=== PATIENT | male | born 1985 | race Caucasian/White ===

== ENCOUNTER 2018-12-01 04:34 | Inpatient (IN) | payer SELFPAY ==
[2018-12-01 05:01] LABS: Absolute Lymphocytes (CBC) 1.6 K/uL (0.7-4.9); Basophils % 0.6 % (0-1.3); Hematocrit 47.3 % (39.6-49.0); Lymphocytes % 28.1 % (15.3-44.8); MPV 8.4 fL (7.6-11.3); RBC Red Blood Cell Count 4.95 M/uL (4.33-5.43)
[2018-12-01] MEDS ORDERED: NA CHLORIDE 0.9% 1,000 ML ONE ×2 (05:02→05:57)
[2018-12-01] MEDS ORDERED: THIAMINE 200 MG/2 ML INJ ONE (05:02)
[2018-12-01] MEDS ORDERED: NA CHLORIDE 0.9% 50 ML IV ONE (05:02)
[2018-12-01 05:12] LABS: Protime INR 0.99
[2018-12-01 05:15] LABS: Urine Blood 1+ (NEG); Urine Glucose NEGATIVE (NEG); Urine Protein 3+ (NEG); Urine Specific Gravity 1.025 (1.005-1.030)
[2018-12-01 05:28] LABS: AST/SGOT 216 U/L (15-37); Alkaline Phosphatase 70 U/L (45-117); BUN Blood Urea Nitrogen 12 mg/dL (7-18); Bicarbonate 26 mmol/L (21-32); Bilirubin Direct 0.1 mg/dL (0-0.2); Bilirubin Total 0.3 mg/dL (0.2-1.0); Glucose Level 128 mg/dL (74-106); Magnesium 2.5 mg/dL (1.8-2.4); NT PRO-BNP 12 pg/mL (<125); Protein, Total 8.2 g/dL (6.4-8.2); Sodium Level 143 mmol/L (136-145); Troponin (Emerg Dept Use Only) < 0.02 ng/mL (0.0-0.045)
[2018-12-01 05:28] LABS: Barbiturates NEGATIVE (NEGATIVE); Benzodiazepines NEGATIVE (NEGATIVE); Cocaine NEGATIVE (NEGATIVE); METHAMPHETAM POSITIVE (NEGATIVE); Methadone NEGATIVE (NEGATIVE); Opiates POSITIVE (NEGATIVE); Phencyclidine NEGATIVE (NEGATIVE); THC Cannibis NEGATIVE (NEGATIVE)
[2018-12-01 05:31] LABS: ALT/SGPT 364 U/L (12-78)
--- NOTE | 2018-12-01 05:43 | EDPHYS ---
Physician Documentation [facility] Name: Rosalino Rob Age: 33 yrs Sex: Male : 1985 Arrival Date: 12/01/2018 Time: 04:35 Bed 3 Private MD: ED Physician Ray Loyd HPI: 12/01 04:40 This 33 yrs old Male presents to ER via Unassigned with complaints of ams. imtiaz 04:40 The patient presents with confusion, decreased mental status, decreased responsiveness, imtiaz trouble concentrating. Onset: The symptoms/episode began/occurred at an unknown time. Possible causes: drug use, alcohol, head injury, low blood sugar, seizure, unknown. Associated signs and symptoms: The patient has no apparent associated signs or symptoms. Current symptoms: In the emergency department the patient's symptoms have improved, moderately, is more alert. Patient's baseline: Neuro: alert and fully oriented. It is unknown whether or not the patient has had similar symptoms in the past. Historical: - Allergies: 04:45 Unable to obtain; fc - Home Meds: 04:45 Unable to obtain [Active]; fc - PMHx: 04:45 Unable to obtain; fc - PSHx: 04:45 Unable to obtain; fc - Immunization history:: Last tetanus immunization: unknown. - Social history:: Smoking status: unknown. - Family history:: not pertinent. - Ebola Screening: : Patient negative for fever greater than or equal to 101.5 degrees Fahrenheit, and additional compatible Ebola Virus Disease symptoms Patient denies exposure to infectious person Patient denies travel to an Ebola-affected area in the 21 days before illness onset. - Hospitalizations: : No recent hospitalization is reported. ROS: 04:40 Constitutional: Negative for fever, chills, and weight loss, Eyes: Negative for injury, imtiaz pain, redness, and discharge, ENT: Negative for injury, pain, and discharge, Neck: Negative for injury, pain, and swelling, Cardiovascular: Negative for chest pain, palpitations, and edema, Respiratory: Negative for shortness of breath, cough, wheezing, and pleuritic chest pain, Abdomen/GI: Negative for abdominal pain, nausea, vomiting, diarrhea, and constipation, Back: Negative for injury and pain, : Negative for injury, bleeding, discharge, and swelling, MS/Extremity: Negative for injury and deformity, Skin: Negative for injury, rash, and discoloration, Psych: Negative for depression, anxiety, suicide ideation, homicidal ideation, and hallucinations, Allergy/Immunology: Negative for hives, rash, and allergies, Endocrine: Negative for neck swelling, polydipsia, polyuria, polyphagia, and marked weight changes. 04:40 Neuro: Positive for altered mental status, weakness. imtiaz Exam: 04:40 Constitutional: This is a well developed, well nourished patient who is awake, alert, imtiaz and in no acute distress. Head/Face: Normocephalic, atraumatic. Eyes: Pupils equal round and reactive to light, extra-ocular motions intact. Lids and lashes normal. Conjunctiva and sclera are non-icteric and not injected. Cornea within normal limits. Periorbital areas with no swelling, redness, or edema. ENT: Nares patent. No nasal discharge, no septal abnormalities noted. Tympanic membranes are normal and external auditory canals are clear. Oropharynx with no redness, swelling, or masses, exudates, or evidence of obstruction, uvula midline. Mucous membranes moist. Neck: Trachea midline, no thyromegaly or masses palpated, and no cervical lymphadenopathy. Supple, full range of motion without nuchal rigidity, or vertebral point tenderness. No Meningismus. Chest/axilla: Normal chest wall appearance and motion. Nontender with no deformity. No lesions are appreciated. Cardiovascular: Regular rate and rhythm with a normal S1 and S2. No gallops, murmurs, or rubs. Normal PMI, no JVD. No pulse deficits. Respiratory: Lungs have equal breath sounds bilaterally, clear to auscultation and percussion. No rales, rhonchi or wheezes noted. No increased work of breathing, no retractions or nasal flaring. Abdomen/GI: Soft, non-tender, with normal bowel sounds. No distension or tympany. No guarding or rebound. No evidence of tenderness throughout. Back: No spinal tenderness. No costovertebral tenderness. Full range of motion. Male : Normal genitalia with no discharge or lesions. Skin: Warm, dry with normal turgor. Normal color with no rashes, no lesions, and no evidence of cellulitis. MS/ Extremity: Pulses equal, no cyanosis. Neurovascular intact. Full, normal range of motion. Neuro: Awake and alert, GCS 15, oriented to person, place, time, and situation. Cranial nerves II-XII grossly intact. Motor strength 5/5 in all extremities. Sensory grossly intact. Cerebellar exam normal. Normal gait. Psych: Awake, alert, with orientation to person, place and time. Behavior, mood, and affect are within normal limits. Vital Signs: 04:33 BP 130 / 53; Pulse 131; Resp 16; Temp 98.3(A); Pulse Ox 99% on 100% Non-rebreather fc mask; Weight 99.79 kg (R); Height 5 ft. 9 in. (175.26 cm) (R); Pain 0/10; 05:15 BP 121 / 51; Pulse 121; Resp 14; Pulse Ox 91% on 4 lpm NC; rr5 05:25 BP 122 / 46; Pulse 122; Resp 12; Pulse Ox 100% on 15% Non-rebreather mask; rr5 05:30 BP 122 / 48; Pulse 118; Resp 11; Pulse Ox 100% on 15% Non-rebreather mask; rr5 05:50 BP 124 / 58; Pulse 113; Resp 17; Pulse Ox 100% on 15% Non-rebreather mask; rr5 06:05 BP 121 / 60; Pulse 118; Resp 15; Pulse Ox 99% on 15% Non-rebreather mask; rr5 06:11 BP 113 / 51; Pulse 129; Resp 18; Pulse Ox 100% on 15% Non-rebreather mask; rr5 06:24 BP 128 / 64; Pulse 120; Resp 15; Pulse Ox 95% on 50% BiPAP; rr5 07:00 BP 110 / 49; Pulse 115; Resp 15; Temp 97; Pulse Ox 93% on 50% BiPAP; rr5 04:33 Body Mass Index 32.49 (99.79 kg, 175.26 cm) fc 05:15 changed to non rebreather mask \T\ 15 liters rr5 Brenda Coma Score: 04:33 Eye Response: to voice(3). Verbal Response: confused(4). Motor Response: localizes rr5 pain(5). Total: 12. 05:00 Eye Response: to voice(3). Verbal Response: oriented(5). Motor Response: obeys rr5 commands(6). Total: 14. 05:30 Eye Response: none(1). Verbal Response: incomprehensible(2). Motor Response: none(1). rr5 Total: 4. 05:38 Eye Response: to pain(2). Verbal Response: incomprehensible(2). Motor Response: rr5 withdraws from pain(4). Total: 8. 06:05 Eye Response: to voice(3). Verbal Response: confused(4). Motor Response: obeys rr5 commands(6). Total: 13. 06:11 Eye Response: to voice(3). Verbal Response: confused(4). Motor Response: obeys rr5 commands(6). Total: 13. 06:24 Eye Response: to voice(3). Verbal Response: confused(4). Motor Response: obeys rr5 commands(6). Total: 13. 07:00 Eye Response: to voice(3). Verbal Response: confused(4). Motor Response: obeys rr5 commands(6). Total: 13. 05:30 seen and reassess by ED provider. rr5 05:38 stat medication given,reassess by ED provider at bedside rr5 MDM: 04:42 Data reviewed: vital signs, nurses notes, lab test result(s), EKG, radiologic studies, imtiaz CT scan, plain films. 04:43 Patient medically screened. 12/01 04:38 Order name: Basic Metabolic Panel; Complete Time: 05:38 12/01 04:38 Order name: CBC with Diff; Complete Time: 05:38 12/01 04:38 Order name: LFT's; Complete Time: 05:38 12/01 04:38 Order name: Magnesium; Complete Time: 05:38 12/01 04:38 Order name: NT PRO-BNP; Complete Time: 05:38 12/01 04:38 Order name: PT-INR; Complete Time: 05:38 12/01 04:38 Order name: Troponin (emerg Dept Use Only); Complete Time: 05:38 12/01 04:38 Order name: Acetaminophen; Complete Time: 05:38 12/01 04:38 Order name: ETOH Level; Complete Time: 05:38 12/01 04:38 Order name: Ptt, Activated; Complete Time: 05:38 12/01 04:38 Order name: Salicylate; Complete Time: 05:38 [facility] 12/01 04:38 Order name: Urine Drug Screen; Complete Time: 05:38 [facility] 12/01 05:00 Order name: Urine Dipstick--Ancillary (enter results); Complete Time: 05:38 ar5 12/01 05:47 Order name: ABG [facility] 12/01 04:38 Order name: XRAY Chest (1 view) [facility] 12/01 04:38 Order name: EKG; Complete Time: 04:40 [facility] 12/01 04:38 Order name: Cardiac monitoring; Complete Time: 05:04 [facility] 12/01 04:38 Order name: EKG - Nurse/Tech; Complete Time: 05:04 [facility] 12/01 04:38 Order name: IV Saline Lock; Complete Time: 05:04 [facility] 12/01 04:38 Order name: Labs collected and sent; Complete Time: 05:08 [facility] 12/01 04:38 Order name: O2 Per Protocol; Complete Time: 05:04 [facility] 12/01 04:38 Order name: O2 Sat Monitoring; Complete Time: 05:04 [facility] 12/01 04:38 Order name: Urine Dipstick-Ancillary (obtain specimen); Complete Time: 05:04 [facility] 12/01 04:38 Order name: CT Head Brain wo Cont [facility] 12/01 04:38 Order name: Seizure Precautions; Complete Time: 05:08 [facility] 12/01 06:13 Order name: BIPAP: 14, 50%, 12,6 [facility] 12/01 04:39 Order name: Blood Glucose Level; Complete Time: 05:08 [facility] Administered Medications: 04:44 Drug: NS 0.9% 1000 ml Route: IV; Rate: 1 bolus; Site: right antecubital; rr5 05:45 Follow up: Response: No adverse reaction; IV Status: Completed infusion; IV Intake: rr5 1000ml 04:45 Drug: Thiamine 100 mg Route: IV; Rate: bolus; Site: right antecubital; rr5 05:58 Follow up: Response: No adverse reaction; IV Status: Completed infusion; IV Intake: [id number] 05:35 Drug: NARcan 1 mg Route: IVP; Site: right antecubital; rr5 05:42 Drug: NS 0.9% 1000 ml Route: IV; Rate: 1 bolus; Site: right antecubital; rr5 06:14 Follow up: Response: No adverse reaction; IV Status: Completed infusion; IV Intake: rr5 1000ml Point of Care Testing: Blood Glucose: 05:03 Blood Glucose: 117 mg/dL; rr5 Ranges: Critical Glucose Levels:Adult <50 mg/dl or >400 mg/dl <40 mg/dl or >180 mg/dl Disposition: 12/01/18 05:41 Hospitalization ordered by Guillaume Mccrary for Inpatient Admission. Preliminary diagnosis are Altered mental status, unspecified, Abuse of non-psychoactive substances. - Bed requested for Intensive Care Unit. - Status is Inpatient Admission. sv - Condition is Fair. - Problem is new. - Symptoms are unchanged. UTI on Admission? No Signatures: Dispatcher [employer] EDJennifer Savage, RN RN Ray Maldonado MD MD cha Chretien, Felicia RN RN Melia Maddox RN RN Zachery Campos RN RN ja1 Antoine Razo RN RN rr5 Corrections: (The following items were deleted from the chart) 04:42 04:40 Neuro: Positive for [facility] 07:04 05:41 Hospitalization Ordered by Guillaume Mccrary DO for Inpatient Admission. Preliminary ja1 diagnosis is Altered mental status, unspecified; Abuse of non-psychoactive substances. Bed requested for Intensive Care Unit. Status is Inpatient Admission. Condition is Fair. Problem is new. Symptoms are unchanged. UTI on Admission? No. [facility] 07:41 07:04 12/01/2018 05:41 Hospitalization Ordered by Guillaume Mccrary DO for Inpatient sv Admission. Preliminary diagnosis is Altered mental status, unspecified; Abuse of non-psychoactive substances. Bed requested for Intensive Care Unit. Status is Inpatient Admission. Condition is Fair. Problem is new. Symptoms are unchanged. UTI on Admission? No. ja1
--- NOTE | 2018-12-01 05:43 | ER ---
Nurse's Notes [facility] Name: Rosalino Rob Age: 33 yrs Sex: Male : 1985 Arrival Date: 12/01/2018 Time: 04:35 Bed 3 Private MD: Diagnosis: Altered mental status, unspecified;Abuse of non-psychoactive substances Presentation: 12/01 04:33 Presenting complaint: EMS states: that they were toned for unresponsive person on sofa. fc Upon their arrival they found pt lying on sofa breathing approx 6 times a min. Pt given narcan and resp rate increased. Transition of care: patient was not received from another setting of care. Onset of symptoms was December 01, 2018. Risk Assessment: Do you want to hurt yourself or someone else? Patient reports no desire to harm self or others. Initial Sepsis Screen: Does the patient meet any 2 criteria? HR > 90 bpm. Yes Does the patient have a suspected source of infection? No. Patient's initial sepsis screen is negative. Care prior to arrival: nasal trumpet, Medication(s) given: Narcan 1.5 mg IV initiated. 18 GA, in the left antecubital area. 04:33 Method Of Arrival: EMS: [facility] 04:33 Acuity: MIMA 2 fc Historical: - Allergies: 04:45 Unable to obtain; fc - Home Meds: 04:45 Unable to obtain [Active]; fc - PMHx: 04:45 Unable to obtain; fc - PSHx: 04:45 Unable to obtain; fc - Immunization history:: Last tetanus immunization: unknown. - Social history:: Smoking status: unknown. - Family history:: not pertinent. - Ebola Screening: : Patient negative for fever greater than or equal to 101.5 degrees Fahrenheit, and additional compatible Ebola Virus Disease symptoms Patient denies exposure to infectious person Patient denies travel to an Ebola-affected area in the 21 days before illness onset. - Hospitalizations: : No recent hospitalization is reported. Screenin:33 Abuse screen: Denies threats or abuse. Nutritional screening: No deficits noted. fc Tuberculosis screening: No symptoms or risk factors identified. Fall Risk None identified. Assessment: 04:30 General: Appears in no apparent distress. unkempt, Behavior is drowsy, snoring. came rr5 via EMS with chief complaint of unresponsiveness. medication given by EMS staff. patient came to ED snoring response to voice. drowsy not aggressive.. 04:30 Pain: Unable to use pain scale. Patient is disoriented. Neuro: Level of Consciousness rr5 is confused, Oriented to none. Cardiovascular: Capillary refill < 3 seconds Patient's skin is warm and dry. Respiratory: Airway is patent Respiratory effort is even, unlabored, Respiratory pattern is regular, symmetrical, snoring noted, maintaining O2 saturation 98-100% via room air.with nasal trumpet right nares. GI: No signs and/or symptoms were reported involving the gastrointestinal system. : No signs and/or symptoms were reported regarding the genitourinary system. EENT: No signs and/or symptoms were reported regarding the EENT system. Derm: Skin is intact, Skin temperature is warm. Musculoskeletal: Capillary refill < 3 seconds. 05:00 Reassessment: Patient appears in no apparent distress at this time. sent to CT scan via rr5 stretcher accompanied by ANANT hicks. 05:30 Reassessment: diaphoretic, RR decreased to 11 cpm, GCS 4/15, informed ED provider with rr5 order made and carried out. 05:50 Reassessment: RR increased to 17 cpm, reassess by ED provider patient respond to pain. rr5 dr. loyd spoke to hospitalist for admission.Dr. green at bedside examining the patient. 06:05 Reassessment: Patient appears in no apparent distress at this time. patient respond to rr5 voice when asked how is he? " I'm fine I'm fine" as verbalized by the patient. maintaining oxygen saturation at 100% at 15 liters on non re breather mask. 06:13 Reassessment: ABG result review, ED provider with order of BIPAP made and carried out. rr5 06:15 Reassessment: nasal trumpet removed by dr. loyd. rr5 06:30 Reassessment: Patient appears in no apparent distress at this time. still snoring rr5 noted,patient respond to voice and follows command. Vital Signs: 04:33 BP 130 / 53; Pulse 131; Resp 16; Temp 98.3(A); Pulse Ox 99% on 100% Non-rebreather fc mask; Weight 99.79 kg (R); Height 5 ft. 9 in. (175.26 cm) (R); Pain 0/10; 05:15 BP 121 / 51; Pulse 121; Resp 14; Pulse Ox 91% on 4 lpm NC; rr5 05:25 BP 122 / 46; Pulse 122; Resp 12; Pulse Ox 100% on 15% Non-rebreather mask; rr5 05:30 BP 122 / 48; Pulse 118; Resp 11; Pulse Ox 100% on 15% Non-rebreather mask; rr5 05:50 BP 124 / 58; Pulse 113; Resp 17; Pulse Ox 100% on 15% Non-rebreather mask; rr5 06:05 BP 121 / 60; Pulse 118; Resp 15; Pulse Ox 99% on 15% Non-rebreather mask; rr5 06:11 BP 113 / 51; Pulse 129; Resp 18; Pulse Ox 100% on 15% Non-rebreather mask; rr5 06:24 BP 128 / 64; Pulse 120; Resp 15; Pulse Ox 95% on 50% BiPAP; rr5 07:00 BP 110 / 49; Pulse 115; Resp 15; Temp 97; Pulse Ox 93% on 50% BiPAP; rr5 04:33 Body Mass Index 32.49 (99.79 kg, 175.26 cm) fc 05:15 changed to non rebreather mask \\T\\ 15 liters rr5 [place] Coma Score: 04:33 Eye Response: to voice(3). Verbal Response: confused(4). Motor Response: localizes rr5 pain(5). Total: 12. 05:00 Eye Response: to voice(3). Verbal Response: oriented(5). Motor Response: obeys rr5 commands(6). Total: 14. 05:30 Eye Response: none(1). Verbal Response: incomprehensible(2). Motor Response: none(1). rr5 Total: 4. 05:38 Eye Response: to pain(2). Verbal Response: incomprehensible(2). Motor Response: rr5 withdraws from pain(4). Total: 8. 06:05 Eye Response: to voice(3). Verbal Response: confused(4). Motor Response: obeys rr5 commands(6). Total: 13. 06:11 Eye Response: to voice(3). Verbal Response: confused(4). Motor Response: obeys rr5 commands(6). Total: 13. 06:24 Eye Response: to voice(3). Verbal Response: confused(4). Motor Response: obeys rr5 commands(6). Total: 13. 07:00 Eye Response: to voice(3). Verbal Response: confused(4). Motor Response: obeys rr5 commands(6). Total: 13. 05:30 seen and reassess by ED provider. rr5 05:38 stat medication given,reassess by ED provider at bedside rr5 ED Course: 04:30 Placed nasal trumpet 18 Fr via right nare. came in nasal trumpet by EMS. cc3 04:33 Arm band placed on Patient placed in an exam room, on a stretcher. fc 04:33 Patient has correct armband on for positive identification. Placed in gown. Bed in low fc position. Call light in reach. Side rails up X2. monitoring coordinator on. Pulse ox on. NIBP on. 04:33 No provider procedures requiring assistance completed. fc 04:35 Patient arrived in ED. imtiaz 04:36 Ray Loyd MD is Attending Physician. imtiaz 04:40 Inserted saline lock: 18 gauge in right antecubital area, using aseptic technique. rr5 ,using aseptic technique. inserted by melia [place] Blood collected. 04:41 Antoine Razo, ANANT is Primary Nurse. rr5 04:43 Triage completed. fc 04:45 Urine collected: straight cath specimen, clear, inserted by pathology technologistpauline vaughn. rr5 04:46 Warm blanket given. Head of bed elevated. rr5 04:49 Seizure precautions initiated. rr5 04:50 EKG done, by ED staff, reviewed by Ray Loyd MD. rr5 04:53 X-ray completed. Portable x-ray completed in exam room. Patient tolerated procedure kw well. 04:56 XRAY Chest (1 view) In Process Unspecified. EDMS 05:09 CT completed. Patient tolerated procedure well. Patient moved to CT via stretcher. Patient moved back from CT. 05:15 Oxygen administration via non-rebreather mask \\T\\ 15L/min Response to oxygen therapy: rr5 symptoms improved. 05:18 CT Head Brain wo Cont In Process Unspecified. EDMS 05:31 Notified ED physician of a critical lab result(s). ALT 364. Dr Loyd notified. bb 05:39 Guillaume Green DO is Hospitalizing Provider. imtiaz 06:05 ABG drawn. by RT staff, on oxygen. rr5 07:11 Patient admitted, IV remains in place. intact, No redness/swelling at site. rr5 Administered Medications: 04:44 Drug: NS 0.9% 1000 ml Route: IV; Rate: 1 bolus; Site: right antecubital; rr5 05:45 Follow up: Response: No adverse reaction; IV Status: Completed infusion; IV Intake: rr5 1000ml 04:45 Drug: Thiamine 100 mg Route: IV; Rate: bolus; Site: right antecubital; rr5 05:58 Follow up: Response: No adverse reaction; IV Status: Completed infusion; IV Intake: [id number] 05:35 Drug: NARcan 1 mg Route: IVP; Site: right antecubital; rr5 05:42 Drug: NS 0.9% 1000 ml Route: IV; Rate: 1 bolus; Site: right antecubital; rr5 06:14 Follow up: Response: No adverse reaction; IV Status: Completed infusion; IV Intake: rr5 1000ml Point of Care Testing: Blood Glucose: 05:03 Blood Glucose: 117 mg/dL; rr5 Ranges: Intake: 05:45 IV: 1000ml; Total: 1000ml. rr5 05:58 IV: 50ml; Total: 1050ml. rr5 06:14 IV: 1000ml; Total: 2050ml. rr5 Outcome: 05:41 Decision to Hospitalize by Provider. imtiaz 07:10 Admitted to ICU accompanied by nurse, via stretcher, room ICU 5, with oxygen, on rr5 monitor, with chart, Report called to em brito 07:10 Condition: stable 07:10 Instructed on the need for admit. 07:41 Patient left the ED. sv Signatures: Dispatcher [employer] EDMS Jennifer Beauchamp, RN Ray Richardson MD MD cha Hagler, Ervin eh Chretien, Felicia, RN Melia Poe RN RN bb Whitley, Kimberlee kw Cordel, Charlene cc3 Antoine Razo RN RN rr5 Corrections: (The following items were deleted from the chart) 04:59 04:30 Placed nasal trumpet 18 Fr via right nare. came in nasal trumpet by EMS rr5 cc3 05:31 04:33 GCS: 13, rr5 rr5
[2018-12-01] MEDS ORDERED: NALOXONE HCL 2 MG/2 ML VIAL ONE (05:51)
[2018-12-01 06:08] LABS: Arterial Blood Carboxyhemoglob 1.5 % (0-1.5); Blood Gas Oxyhemoglobin 96.6 % (94-97); Blood O2 Saturation 98.9 % (92-98.5)
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
[2018-12-01] MEDS ORDERED: IPRATROPIUM BROM 0.5MG/2.5ML NEB PRN (07:42)
[2018-12-01] MEDS ORDERED: ACETAMINOPHEN 650MG/RECT SUPP PR PRN (07:42)
[2018-12-01] MEDS ORDERED: ALBUTEROL 2.5 MG/3 ML NEB SOL NEB PRN (07:42)
[2018-12-01] MEDS ORDERED: ONDANSETRON 4 MG/2 ML VIAL IV PRN (07:42)
[2018-12-01] MEDS ORDERED: ACETAMINOPHEN 500 MG TAB PO PRN (07:42)
[2018-12-01] MEDS: NA CHLORIDE 0.9% 1,000 ML IV SCH ×2 (07:42→20:04)
--- NOTE | 2018-12-01 08:40 | RAD REPORT ---
EXAM DESCRIPTION: Colin Single View12/01/2018 4:57 am CLINICAL HISTORY: Cough COMPARISON: 2008 FINDINGS: Situs inversus. Stomach within the right abdomen. Prominence of the left paratracheal region/hilum Heart size normal IMPRESSION: Prominence of the left paratracheal region/left hilum. PA and lateral chest series is r ecommended for further evaluation
[2018-12-01] MEDS: FOLIC ACID 1 MG, MULTIVITAMINS INJ 10 ML, THIAMINE HCL 100 MG in NA CHLORIDE 0.9% 1,000 ML IV SCH (09:15)
[2018-12-01] MEDS: ENOXAPARIN 40 MG/0.4 ML SQ SCH (09:15)
--- NOTE | 2018-12-01 09:16 | RAD REPORT ---
EXAM DESCRIPTION: CT - Head Brain Wo Cont - 12/01/2018 5:56 am CLINICAL HISTORY: DIZZINESS TECHNIQUE: Multiple axial CT images of the brain were performed followed by sagittal and coronal rec onstructed images. The CT study is performed according to ALARA (as low as reasonably achievable) or ALARA/IMAGE GENTLY, with automatic adjustment of mA and/or kV according to patient size. Performed on: 12/01/2018 at 5:01 AM COMPARISON: None. FINDINGS: There is no evidence of mass, acute mass effect or midline shift. There are no acute extra -axial fluid collections. There is no evidence of acute intracranial hemorrhage. The cerebral sulci and ventricles are normal in size and configuration. There are no focal abnormal areas of increased or decreased attenuation. There is no significant mucosal thickening of the paranasal sinuses. A nasal cannula is present. The mastoid air cells are clear. The orbital contents are grossly unremarkable. No acute osseous abnormalities are identified. No focal soft tissue abnormalities are identified. IMPRESSION: 1. There is no evidence of acute intracranial pathology. Electronically signed by: Dayami Garay DO 12/01/2018 5:29 AM CDT Due to temporary technical issues with the PACS/Fluency reporting system, reports are being signed by the in house radiologist as a courtesy to ensure prompt reporting. The interpreting radiologist is f robelly responsible for the content of the report.
[2018-12-01] MEDS ORDERED: LORazepam 2 MG/ML VIAL IV PRN (11:24)
--- NOTE | 2018-12-01 13:34 | EKG ---
Test Date: 2018-12-01 Test Time: 04:57:21 Multimedia Services Manager: MICHELLE MEASUREMENT RESULTS: Intervals: Rate: 119 SC: 174 QRSD: 86 QT: 296 QTc: 416 [place]: P: SC: 174 QRS: 119 T: 166 INTERPRETIVE STATEMENTS: Sinus tachycardia Inferior infarct, age undetermined Anterolateral infarct, age undetermined Abnormal ECG Compared to ECG 11/22/2015 07:03:26 Sinus rhythm no longer present Myocardial infarct finding still present Electronically Signed On 12-01-18 13:33:29 CDT by Yvon Lockhart
--- NOTE | 2018-12-01 15:12 | PN ---
Date of Progress Note: 12/01/2018 Patient seen and examined. Chart reviewed and case discussed with RN. The patient not really partic ipating in history taking, is very somnolent, currently on BiPAP. Medications: List reviewed. Physical Examination: Vital Signs: Temperature 97, heart rate 115, blood pressure 110/49, respirations 15, O2 93% on BiPAP , 50% FiO2. General: Asleep but arousable obese male. CV: S1, S2. Sinus tachycardia. Peripheral pulses present. Respiratory: Diminished breath sounds. No wheezing or stridor. Gastrointestinal: Abdomen is soft, nontender, nondistended. Positive bowel sounds. Extremities: No clubbing, cyanosis, or edema. No calf tenderness. Neurological: Cranial nerves 2 through 12 intact grossly. No focal neurological deficit. Speech is normal. Laboratory Data: Sodium 143, potassium 4, AST 216, ALT 364, creatinine 1.55. WBC 5.7, H and H 16.5 and 47.3. Assessment And Plan: 1.Acute toxic encephalopathy related to drug overdose, improving. The patient is still somewhat agustina nolent and agitated when woken up. 2.Intentional drug overdose with amphetamines and opiates. We will continue to monitor. 3.Acute respiratory failure with hypoxia. Patient is currently on BiPAP. We will continue to wean a s tolerated. 4.Alcohol abuse with elevated alcohol level, which we will watch for signs of alcohol withdrawal. U se Ativan p.r.n. Use CIWA protocol. 5.Acute kidney injury secondary to prerenal azotemia. 6.Elevated liver enzymes, may be due to alcohol binge. We will continue to monitor acetaminophen le jorge, was less than 2. 7.DVT prophylaxis addressed. Plan, we will continue supplemental oxygenation, wean as tolerated. Continue monitor for alcohol withdrawal. Continue banana bag. Seiz ure precautions. SA/MODL Voice ID: [id number] Report ID: [id number]
[2018-12-02 05:56] LABS: Absolute Lymphocytes (CBC) 1.4 K/uL (0.7-4.9); Basophils % 0.1 % (0-1.3); Hematocrit 41.8 % (39.6-49.0); Lymphocytes % 13.3 % (15.3-44.8); MPV 8.3 fL (7.6-11.3); RBC Red Blood Cell Count 4.35 M/uL (4.33-5.43)
[2018-12-02] MEDS: NA CHLORIDE 0.9% 1,000 ML IV SCH (06:00)
[2018-12-02 06:03] LABS: Bilirubin Total 0.9 mg/dL (0.2-1.0); Magnesium 1.9 mg/dL (1.8-2.4); Potassium 4.1 mmol/L (3.5-5.1); Protein, Total 6.5 g/dL (6.4-8.2)
[2018-12-02] MEDS: FOLIC ACID 1 MG, MULTIVITAMINS INJ 10 ML, THIAMINE HCL 100 MG in NA CHLORIDE 0.9% 1,000 ML IV SCH ×2 (09:00→10:11)
[2018-12-02] MEDS: ENOXAPARIN 40 MG/0.4 ML SQ SCH (10:11)
--- NOTE | 2018-12-02 10:26 | DS ---
Date of Discharge: 12/02/2018 Admitting Diagnoses: 1. Acute toxic encephalopathy. 2. Drug overdose. 3. Alcohol abuse with elevated alcohol level. 4. Acute kidney injury secondary to dehydration. Discharge Diagnoses: 1. Acute toxic encephalopathy related to drug overdose, resolved. 2. Intentional drug overdose with amphetamines and opiates. 3. Acute respiratory failure with hypoxia, resolved. 4. Alcohol abuse with elevated alcohol level. 5. Acute kidney injury secondary to prerenal azotemia. Creatinine now normalized. 6. Elevated liver enzymes, likely related to acute alcohol intoxication. 7. Obesity. Hospital Course: Patient is a 33-year-old male who states that he had blacked out after drinking a significant amount of alcohol and had also taken IV drugs. The patient came in via EMS. He had elevated liver enzymes, was dehydrated with elevated kidney function. Tox screen was positive for opiates and amphetamines. His serum alcohol level was 198. He was acidotic. The patient was kept in the ICU and was started on IV fluids and placed on CIWA protocol for alcohol withdrawal and possible seizures. CT head was done, which was negative. Chest x-ray showed some prominence of the perihilar region. Patient improved significantly. He became more awake and alert. His tachycardia resolved. Patient did complain of shortness of breath, which improved. He was able to be weaned off oxygen. Patient was then doing well. He states that he did not intend to hurt himself. He regrets taking drugs. He understand that these are harmful to him, especially IV drugs, which may lead to hepatitis or other infections not limited to HIV. He voiced understanding. The patient was then cleared for discharge and was sent home in a stable condition. Activity: As tolerated. Medications: As per medication reconciliation list. Diet: Regular diet. Followup: Follow up with PCP. Return to ER for worsening condition. Physical Examination: General: Awake, alert, oriented x3, not in any acute distress. Obese male. CV: S1, S2. Respiratory: Moving air well bilaterally. Abdomen: Soft, nontender, nondistended. Positive bowel sounds. Extremities: No clubbing, cyanosis, or edema. Neurologic: Nonfocal. Total time spent discharging the patient was 33 minutes. /ISAIAS Voice ID: [id number] Report ID: [id number] MTDD
--- NOTE | 2018-12-02 13:04 | RAD REPORT ---
EXAM DESCRIPTION: Colin Pa And Lat (2 Views)12/02/2018 11:06 am CLINICAL HISTORY: Cough COMPARISON: December 01, 2018 FINDINGS: Dextrocardia. Left the paratracheal region has a normal appearance. Mild right basilar and left pulmonary opacities have developed IMPRESSION: Mild bilateral lung opacities likely representing pneumonia
--- NOTE | 2018-12-03 06:32 | EKG ---
Test Date: 2018-12-01 Test Time: 15:52:04 Trail Maintenance Worker: RAAD MEASUREMENT RESULTS: Intervals: Rate: 135 [place]: 156 QRSD: 80 QT: 284 QTc: 426 [place]: P: 113 [place]: 156 QRS: 76 T: 165 INTERPRETIVE STATEMENTS: Sinus tachycardia Anterolateral infarct, age undetermined ST & T wave abnormality, consider inferior ischemia Abnormal ECG Compared to ECG 12/01/2018 04:57:21 ST (T wave) deviation now present Possible ischemia now present Myocardial infarct finding still present Electronically Signed On 12-03-18 06:31:18 CDT by Yvon Lockhart
[2018-12-05 03:55] LABS: HBsAG Nonreactive (Nonreactive)
[2018-12-05 19:40] LABS: Hep C Virus RNA (PCR)log 6.01 log IU/mL
== END 2018-12-02 12:45 | disposition home or self-care (01) | DRG 917 ==
LOC: ER 04:34 → ERHOLD 05:59 → 3RD-ICU 07:13
PROVIDERS: ADMIT Family Medicine; ATTEND Family Medicine
DX: T43.621A Poisoning by amphetamines, accidental (unintentional), initial encounter (principal); G92 Toxic encephalopathy; J96.01 Acute respiratory failure with hypoxia; N17.9 Acute kidney failure, unspecified; T40.601A Poisoning by unspecified narcotics, accidental (unintentional), initial encounter; Y92.009 Unspecified place in unspecified non-institutional (private) residence as the place of occurrence of the external cause; F10.129 Alcohol abuse with intoxication, unspecified; Y90.6 Blood alcohol level of 120-199 mg/100 ml; E86.0 Dehydration; E66.9 Obesity, unspecified; Z68.33 Body mass index [BMI] 33.0-33.9, adult
CPT/HCPCS: 36415; 70450; 71045; 71046; 80048; 80053; 80074; 80076; 80307; 80320; 80329; 81003; 82805; 82962; 83735; 83880; 84484; 85025; 85610; 85730; 87522; 93005; 94660; 96365; 96375; 99285; J1650; J2310; J3411; J7030